=== PATIENT | female | born 1945 | race Caucasian/White ===

== ENCOUNTER 2017-09-24 05:25 | Inpatient (IN) ==
[2017-09-24 05:47] VITALS: BMI 33.4
[2017-09-24] MEDS ORDERED: FAMOTIDINE PB 20 MG/50 ML BAG IV ONE (06:00)
[2017-09-24] MEDS ORDERED: LIDOCAINE 1% (10mg/ml) 2mL INJ PF SDV ID ONE (06:00)
[2017-09-24] MEDS ORDERED: NOZIN NASAL SWAB NAS ONE ×2 (06:00→09:32)
[2017-09-24] MEDS ORDERED: ACETAMINOPHEN 500 MG TABLET PO ONE (06:00)
[2017-09-24] MEDS ORDERED: METOCLOPRAMIDE 10mg/2ml INJECTION IVP ONE (06:00)
[2017-09-24] MEDS ORDERED: TRANEXAMIC ACID 1,000 MG in NS 100 ML IV ONE ×2 (06:00→07:00)
[2017-09-24] MEDS ORDERED: MELOXICAM 15 MG TABLET PO ONE (06:00)
[2017-09-24] MEDS ORDERED: ONDANSETRON 4 MG/2 ML INJECTION IVP ONE (06:00)
[2017-09-24] MEDS ORDERED: DEXAMETHASONE 4 MG/ML INJECTION IVP ONE (06:00)
[2017-09-24] MEDS: LR 1,000 ML IV SCH ×2 (06:21→08:22)
[2017-09-24] MEDS ORDERED: CEFAZOLIN 1 G INJECTION IVP ONE (06:21)
--- NOTE | 2017-09-24 06:47 | Anesthesia Preoperative Report ---
Anesthesia Preoperative Record - Date and Time Date: 09/24/17 Preoperative Diagnosis: LT VALENTÍN M16.12 NPO Since Date: 09/23/17 NPO Since Time: 20:30 Allergies/Adverse Reactions: Allergies Allergy/AdvReac Type Severity Reaction Status Date / Time hydrocodone AdvReac Unknown N/V Verified 09/24/17 05:58 oxycodone AdvReac Unknown N/V Verified 09/24/17 05:58 - Vital Signs Vital Signs: Temperature 98.1 F 09/24/17 05:47 Pulse Rate 56 L 09/24/17 06:00 Respiratory Rate 18 09/24/17 05:47 Blood Pressure 174/88 H 09/24/17 05:47 Pulse Oximetry 99 09/24/17 05:47 Height and Weight: Height 1.7 m Weight 96.8 kg Body Mass Index 33.4 - Medications Inpatient Medications: Current Medications Lactated Ringer's (Lactated Ringers) 1,000 mls @ 50 mls/hr IV .Q20H ÓSCAR Last Admin: 09/24/17 06:21 Dose: 50 mls/hr Tranexamic Acid 1,000 mg/ (Sodium Chloride) 110 mls @ 660 mls/hr IV INTRAOP ONE Stop: 09/24/17 07:09 Epinephrine HCl 0.25 mg/Bupivacaine HCl 30 ml/Morphine Sulfate 15 mg/Ketorolac Tromethamine 60 mg/Sodium Chloride 65.25 mls @ 1 mls/hr OPSITE INTRAOP ONE PRN Reason: Protocol Stop: 09/27/17 01:14 Sodium Chloride (Iv Flush) 10 - 80 ml IV PRN PRN PRN Reason: Flushing Home Medications: Home Medications Medication Instructions Recorded Confirmed Type Ibuprofen [Motrin Ib] 200 - 400 mg PO Q5H PRN #0 08/26/09 09/24/17 History Lutein 10 mg PO DAILY #0 02/08/16 09/24/17 History Multivitamin [Multi-Day Vitamins] 1 tab PO DAILY #0 tab 02/08/16 09/24/17 History Timolol Maleate [Timoptic] 1 drop BOTH EYES DAILY #0 ml 02/08/16 09/24/17 History Acetaminophen [Tylenol] 500 - 1,000 mg PO Q5H PRN 08/09/17 09/24/17 History Biotin 1 mg PO DAILY 08/09/17 09/24/17 History Ferrous Sulfate [Feosol] 325 mg PO DAILY 08/09/17 09/24/17 History Is Patient on Beta Saravanan?: No - Medical History Cardiovascular: Reports: Hypertension (preop) Gastrointestional: Reports: Morbid Obesity (BMI 33.4) - Surgical History HEENT Surgeries: Reports: Eye Surgery (right eye cataract) GI Surgery/Treatments: Reports: Appendectomy, Colonoscopy (with polypectomy 2013 ) Musculoskeletal Surgery/Tx: Reports: Total Hip Replacement (Rt VALENTÍN) Reproductive Surgery/Treatment: Reports: Mastectomy (Rt mastectomy; Rt breast reconstruction 2014), Other (breast biopsy x2; cervical conization) Anesthesia Reactions: None Hx Family Anesthesia Reaction: No History of Motion Sickness: No - Social History Smoking Status: Former smoker Hx Chewing Tobacco Use: No Second Hand Exposure: No Substance Use Type: does not use Alcohol Intake Frequency: does not drink - Pertinent Findings EKG: Sinus Bradycardia - Physical Exam Respiratory Exam: Present: lungs clear, bilateral breath sounds equal Cardiovascular Exam: Present: regular rate and rhythm - Airway Assessment Mallampati Score: II TMD: 3 Fingerbreadths Neck Extension: fair Overall Assessment: no airway concerns - ASA ASA Score: 2 - Plan Anesthesia: General TIVA, General Inhalation Gases, Neuroaxial Regional/Trunk Block: Spinal - Discussion Discussion: Discussed risks/options/alternatives of anesthesia and questions answered. Patient consents. Nursing pain assessment noted. Present for Discussion: family member Attestation Statement: Prior to the delivery of any anesthetic medication, I examined the patient, developed the plan, obtained the patient's consent and discussed the risk and benefits of the procedure with the patient/guardian. - Additional Information Comments: jaw clicks on right side and has locked up momentarily before Seen by Anesthesia: Yes
[2017-09-24] MEDS ORDERED: VANCOMYCIN 1,000 MG INJECTION ONE ×2 (06:49→08:01)
[2017-09-24] MEDS ORDERED: FentaNYL 100 MCG/2 ML INJECTION ONE (06:52)
[2017-09-24] MEDS ORDERED: MIDAZOLAM 2mg/2ml INJECTION ONE (06:53)
[2017-09-24] MEDS ORDERED: PROPOFOL 500 MG/50 ML VIAL IV ONE ×2 (06:58→08:06)
[2017-09-24] MEDS ORDERED: DEXAMETHASONE 4 MG/ML INJECTION ONE (07:18)
[2017-09-24] MEDS ORDERED: ONDANSETRON 4 MG/2 ML INJECTION ONE (07:18)
[2017-09-24] MEDS ORDERED: GLYCOPYRROLATE 0.4 MG/2 ML INJECTION ONE (07:18)
[2017-09-24] MEDS ORDERED: EPINEPHrine PF 0.25 MG, BUPIVACAINE 0.25% PF 30 ML, MORPHINE SULFATE 15 MG, KETOROLAC I... OPSITE ONE (08:00)
[2017-09-24] MEDS ORDERED: VANCOMYCIN 1,000 MG INJECTION IAR ONE (08:28)
--- NOTE | 2017-09-24 08:44 | Operative Note ---
- Procedure Preoperative Diagnosis: Left hip primary degenerative joint disease Postoperative Diagnosis: Same as preoperative diagnosis. Surgeon: Marisol Powell MD Recreation Director: Khalif Summers Complications: None. Anesthesia: Spinal. Estimated Blood Loss: See Anesthesia Record. Fluids: Please see Anesthesia Record. Description of Procedure: Mrs. Thibodeaux and her left hip were identified and marked in the preoperative holding area. She was brought back to the operating suite and spinal anesthetic was administered. She was then placed in a lateral decubitus position with her left hip up. The left lower extremity was prepped and draped in my normal sterile fashion. Timeout was performed. The Work4 robotic arm was used to assist with the surgery. A pelvic array was placed into the iliac crest through three 1 cm incisions. A posterior approach was utilized. An approximately 12 cm incision was made in the skin and dissection carried down to the muscle fascia which was then split in line with skin incision. A checkpoint was placed in the greater trochanter. The short external rotators were identified and tagged and detached. A capsulotomy was performed and the hip dislocated. A femoral neck osteotomy was performed at the pre-templated level measuring down 59 mm from the femoral head. The head was removed and acetabulum exposed. Labrum was removed. The acetabulum was then registered with the robot. The robotic arm was then used to ream with a 59 reamer. The robot then was again used to place a 60 Trident cup in 40 of tilt and 20 of anteversion. A liner was then placed. The proximal femur was exposed and prepared with a cookie cutter followed by reaming and broaching to a size 5. We trialed with a 0 head. After thorough irrigation a final Accolade 2 size 5 stem with 127 neck was placed. Leg length and offset were checked with the robot and were good. A final +2.5 ceramic head was placed and the hip reduced. Betadine solution was used to irrigate throughout the case. It was followed by normal saline irrigation. Joint cocktail was injected throughout soft tissue. The capsulotomy was repaired with Ethibond. Short external rotators were also repaired with Ethibond. 1 g of vancomycin powder was placed into the wound. The muscle fascia was then repaired with #1 Vicryl. I then left my assistant sales manager to close the subcutaneous tissue with 2-0 Vicryl followed by running 4-0 Monocryl skin followed by Dermabond and a sterile dressing. The patient with any placed back into supine position and taken to recovery room in the care of anesthesia.
--- NOTE | 2017-09-24 09:19 | Anesthesia Postoperative Note ---
- Date and Time Date: 09/24/17 Time: 09:18 - Status Patient Participated in Evaluation: Patient Participated in Person Vital Signs: Temperature 97.9 F 09/24/17 09:03 Pulse Rate 75 09/24/17 09:03 Respiratory Rate 14 09/24/17 09:03 Blood Pressure 112/65 09/24/17 09:03 Pulse Oximetry 96 09/24/17 09:03 Respiratory Function: Airway Patent, Regular Respirations Cardiovascular Function: Regular Pulse Mental Status: Alert and Oriented Pain Intensity: 0 Hydration: IV Infusing Complications During Recover: None Apparent - Follow-Up Instructions Instructions: Per Surgeon
[2017-09-24] MEDS ORDERED: DiphenhydrAMINE 25 MG CAPSULE PO PRN (09:32)
[2017-09-24] MEDS ORDERED: ONDANSETRON 4 MG/2 ML INJECTION IVP PRN (09:32)
[2017-09-24] MEDS ORDERED: LORazepam 1 MG TABLET PO PRN (09:32)
[2017-09-24] MEDS ORDERED: DiphenhydrAMINE 50 MG/ML INJECTION IVP PRN (09:32)
[2017-09-24] MEDS ORDERED: NAPROXEN 220 MG TABLET PO PRN (09:32)
[2017-09-24] MEDS ORDERED: IBUPROFEN 200 MG TABLET PO PRN (09:32)
[2017-09-24] MEDS ORDERED: TRAMADOL 50 MG TABLET PO PRN (09:32)
[2017-09-24 09:46] VITALS: RESP 16
--- NOTE | 2017-09-24 10:08 | XRay Report ---
Indication: postoperative image PROCEDURE: XR pelvis w/ 1 view LT hip: Encounter: Initial Comparison: August 09, 2017 Findings: Postoperative changes of left total hip replacement are seen. There is expected postoperative subcutaneous gas. No evidence of hardware failure or acute fracture. No retained radiopaque surgical instruments or sponges seen. Existing right total hip prosthesis appears stable and intact. Impression: New left total hip prosthesis without evidence of immediate complication. .
[2017-09-24] MEDS: ACETAMINOPHEN 325 MG TABLET PO SCH ×4 (10:16→21:07)
[2017-09-24] MEDS: TIMOLOL 0.5% EYE DROPS 5 ML EACH EYE SCH (10:17)
[2017-09-24] MEDS: DOCUSATE SODIUM 100 MG CAPSULE PO SCH ×2 (10:17→21:11)
[2017-09-24] MEDS: POLYETHYL GLYCOL 3350 17gm PACKET PO SCH (10:17)
[2017-09-24] MEDS: NS 1,000 ML IV SCH (10:22)
[2017-09-24] MEDS: CEFAZOLIN 2 G in NS 100 ML IV SCH ×2 (14:44→22:57)
[2017-09-24] MEDS: NOZIN NASAL SWAB NAS SCH ×2 (14:51→21:11)
[2017-09-24] MEDS: DEXAMETHASONE 4 MG/ML INJECTION IVP SCH ×2 (14:58→22:56)
[2017-09-24] MEDS ORDERED: SALINE FLUSH 10ml SYRINGE IV PRN (17:53)
[2017-09-24] MEDS ORDERED: SENNOSIDES 8.6 MG TABLET PO SCH (21:00)
[2017-09-24] MEDS: ASPIRIN *EC* 81 MG TABLET PO SCH (21:11)
[2017-09-25] MEDS: NS 1,000 ML IV SCH ×2 (00:42→12:51)
[2017-09-25] MEDS: NOZIN NASAL SWAB NAS SCH ×3 (05:26→13:38)
[2017-09-25] MEDS ORDERED: SENNOSIDES 8.6 MG TABLET PO PRN (07:05)
--- NOTE | 2017-09-25 08:11 | Orthopedic Progress Note ---
Date: Subjective/Severity of Illness: Diamatne is doing very well this AM. Denies any pain unless she is ambulating. No CP or resp issues. Orthopedic Objective PO Vital signs: Temperature 98.4 F 09/25/17 07:07 Pulse Rate 60 09/25/17 07:07 Respiratory Rate 16 09/25/17 07:07 Blood Pressure 111/57 09/25/17 07:07 Pulse Oximetry 94 09/25/17 07:07 Height and Weight: Height 5 ft 7 in Weight 218 lb 4.122 oz Body Mass Index 33.4 - Constitutional General Appearance: Present: alert, no acute distress - Respiratory Exam Present: non-labored - Extremities Exam Extremities: Present: pulses intact. Absent: calf tenderness - Surgical Site Incision: Mepilex dressing intact, no drainage - Integumentary Exam Present: pink, warm, dry - Neurological Exam Present: no deficits - Psychiatric Exam Present: alert, oriented, normal affect - Labs Result Diagrams: 09/25/17 03:56 09/25/17 03:56 Abnormal lab results 09/25/17 09/25/17 Range/Units 03:56 03:56 WBC 17.1 H (4.5-11.0) T/MM3 RBC 3.85 L (4.00-5.20) M/MM3 Hgb 11.4 L (12-16) GM/DL Hct 35.4 L (36-46) % Chloride 108 H (98-107) MEQ/L Anion Gap 4 L (5-15) MEQ/L BUN 18.0 H (7-17) MG/DL Glucose 140 H (65-110) MG/DL H & H 09/25/17 Range/Units 03:56 Hgb 11.4 L (12-16) GM/DL Hct 35.4 L (36-46) % Orthopedic Assessment and Plan (1) Primary osteoarthritis of left hip Status: Acute Assessment and Plan: Doing well. Expect discharge later today. WBC elevation likely due to IV steroids/surgical stress, Pt is afebrile. ASA x 6 weeks for DVT coverage. SCDs in place. Early mobilization for added coverage. CM for discharge planning. F/U in 3 weeks. - Anticoagulation Therapy Anticoagulation: ASA 81 mg PO BID x6 weeks Hospital Course Summary Disclaimer: The visit summary below is not to be considered part of the above Progress Note.
[2017-09-25] MEDS: ACETAMINOPHEN 325 MG TABLET PO SCH ×2 (08:46→12:51)
[2017-09-25] MEDS: ASPIRIN *EC* 81 MG TABLET PO SCH (08:46)
[2017-09-25] MEDS: DOCUSATE SODIUM 100 MG CAPSULE PO SCH (08:47)
[2017-09-25] MEDS: TIMOLOL 0.5% EYE DROPS 5 ML EACH EYE SCH (08:47)
[2017-09-25] MEDS: POLYETHYL GLYCOL 3350 17gm PACKET PO SCH (08:47)
[2017-09-25] MEDS ORDERED: FALL RISK - PHARMACY CONSULT MC ONE (09:46)
[2017-09-25 11:49] VITALS: PULSE 45
[2017-09-25 14:30] VITALS: BP 114/57; TEMP 97.7; O2SAT 100
--- NOTE | 2017-09-25 14:52 | Orthopedic Progress Note ---
Date: Subjective/Severity of Illness: Diamante is doing very well this afternoon. Denies any pain unless she is ambulating. No CP or resp issues. No palpitations or SOB. Pulse has been reviewed throughout her stay and is in the 40-50's. She is asymptomatic. This has been discussed both with Khalif Summers and Dr. Powell. Dr. Powell feels she can discharge. Orthopedic Objective PO Vital signs: Temperature 97.7 F 09/25/17 14:29 Pulse Rate 45 L 09/25/17 14:29 Respiratory Rate 16 09/25/17 14:29 Blood Pressure 114/57 09/25/17 14:29 Pulse Oximetry 100 09/25/17 14:29 Height and Weight: Height 5 ft 7 in Weight 218 lb 4.122 oz Body Mass Index 33.4 - Constitutional General Appearance: Present: alert, no acute distress - Respiratory Exam Present: non-labored - Extremities Exam Extremities: Present: pulses intact. Absent: calf tenderness - Surgical Site Incision: Mepilex dressing intact, no drainage - Integumentary Exam Present: pink, warm, dry - Neurological Exam Present: no deficits - Psychiatric Exam Present: alert, oriented, normal affect - Labs Result Diagrams: 09/25/17 03:56 09/25/17 03:56 Abnormal lab results 09/25/17 09/25/17 Range/Units 03:56 03:56 WBC 17.1 H (4.5-11.0) T/MM3 RBC 3.85 L (4.00-5.20) M/MM3 Hgb 11.4 L (12-16) GM/DL Hct 35.4 L (36-46) % Chloride 108 H (98-107) MEQ/L Anion Gap 4 L (5-15) MEQ/L BUN 18.0 H (7-17) MG/DL Glucose 140 H (65-110) MG/DL H & H 09/25/17 Range/Units 03:56 Hgb 11.4 L (12-16) GM/DL Hct 35.4 L (36-46) % Orthopedic Assessment and Plan (1) Primary osteoarthritis of left hip Status: Acute Assessment and Plan: Doing well. Expect discharge later today. WBC elevation likely due to IV steroids/surgical stress, Pt is afebrile. ASA x 6 weeks for DVT coverage. SCDs in place. Early mobilization for added coverage. CM for discharge planning. F/U in 3 weeks. - Anticoagulation Therapy Anticoagulation: ASA 81 mg PO BID x6 weeks Hospital Course Summary Disclaimer: The visit summary below is not to be considered part of the above Progress Note.
--- NOTE | 2017-09-25 15:29 | Discharge Summary ---
Orthopedic Discharge Info Date of admission: 09/24/17 05:25 Primary care physician: Julian Woods MD Attending Physician: Jewel Powell MD Consults: 09/24/17 05:57 Consult to Anesthesiology [CONS] Routine Consulting Provider: EMERALD Porter Reason For Exam: Preoperative Assessment 09/24/17 09:32 Case Management Consult [CONS] Routine Reason For Exam: Discharge Planning DME-Walker [CONS] Routine Height: 5 ft 7 in Weight: 213 lb 6.519 oz Comment: change dressing in 2 weeks Total Joint Outpatient Therapy [CONS] Routine Comment: change dressing in 2 weeks - Discharge Diagnosis (1) Primary osteoarthritis of left hip Status: Acute - Procedures Procedures: Procedures Left VALENTÍN - Laboratory Result Diagrams: 09/25/17 03:56 09/25/17 03:56 Laboratory: Abnormal lab results 09/25/17 09/25/17 Range/Units 03:56 03:56 WBC 17.1 H (4.5-11.0) T/MM3 RBC 3.85 L (4.00-5.20) M/MM3 Hgb 11.4 L (12-16) GM/DL Hct 35.4 L (36-46) % Chloride 108 H (98-107) MEQ/L Anion Gap 4 L (5-15) MEQ/L BUN 18.0 H (7-17) MG/DL Glucose 140 H (65-110) MG/DL H & H 09/25/17 Range/Units 03:56 Hgb 11.4 L (12-16) GM/DL Hct 35.4 L (36-46) % Orthopedic Discharge HPI - HPI Comments This patient was admitted for elective surgical tx of end stage degenerative joint disease that failed to respond to conservative treatment. Further details of this is found in the admission H&P. Orthopedic Hospital Course Hospital course: 09/25/17 15:26 After appropriate preoperative clearance and signing of operative consent, the patient was given IV antibiotics, according to orthopedic protocol. The patient was taken to the operating room and underwent elective joint arthroplasty. Following surgery, antibiotics were discontinued less than 24 hours according to joint protocol. Appropriate anticoagulants were initiated and SCDs added for DVT prevention. The dressing was clean, dry, and intact. Pain control was obtained via multimodal approach. Bowel motivation addressed with scheduled and PRN medications. Early mobilization was initiated through PT services. Discharge arrangements made by a collaborative effort between the patient and Case Management. Bradycardia was noted post op with lowest pulse documented at 32. She was monitored throughout her stay and her pulse was stable at 40-50's. She never developed any symptoms with the bradycardia and noted that this is typical for her. The situation was discussed with Dr. Poewll and he indicated he was comfortable with discharge. Follow-up is scheduled in 2-3 weeks. Discharge instructions given by orthopedic providers and nursing staff at discharge. Discharge condition was good. Ongoing care required?: No - Postoperative Anemia patient received IVF, labs monitored daily, no intervention required, HGB drop- acceptable - Leukocytosis due to preoperative IV Decadron Discharge Plan - Med Rec/Dispo Referrals/Follow Up: Jewel Powell MD [Physician] - 10/16/17 9:45 am Devin Instructions: Total Hip Replacement (DC) Additional Instructions: [facility] [employer] [facility] ON 09/27/2017 AT 11:00AM FOR PHYSICAL THERAPY EVAL. PLEASE COMPLETE THE PAPERWORK IN THE [facility] PRIOR TO THE APPOINTMENT. PHONE [phone] Prescriptions: New Acetaminophen [Tylenol] 650 mg PO QID #100 tab Aspirin *EC* [Ecotrin] 81 mg PO BID #84 tab Tramadol [Ultram] 50 - 100 mg PO Q6H PRN #30 tab PRN Reason: Pain Continue Ibuprofen [Motrin Ib] 200 - 400 mg PO Q5H PRN #0 PRN Reason: Pain Timolol Maleate [Timoptic] 1 drop BOTH EYES DAILY #0 ml Lutein 10 mg PO DAILY #0 Biotin 1 mg PO DAILY Multivitamin [Multi-Day Vitamins] 1 tab PO DAILY #0 tab Ferrous Sulfate [Feosol] 325 mg PO DAILY Discontinued Acetaminophen [Tylenol] 500 - 1,000 mg PO Q5H PRN PRN Reason: Pain - Disposition 01 Discharged Home, Self-Care
[2017-09-26] MEDS ORDERED: BISACODYL 10 MG SUPPOSITORY RECTALLY SCH (20:00)
== END 2017-09-25 15:25 | disposition home or self-care (01) | DRG 470 ==
LOC: SRG 05:25
PROVIDERS: ADMIT Orthopaedic Surgery; ATTEND Orthopaedic Surgery